=== PATIENT | male | born 1975 | race Two or more races ===

== ENCOUNTER 2016-12-22 00:01 | Inpatient (IN) | payer OTHER ==
[~2016-12-22] VITALS: Ht 175.3 cm; Wt 131.5 kg
[2016-12-22] MEDS ORDERED: IV NORMAL SALINE 1000ML BAG 1,000 ML IV SCH (00:30)
[2016-12-22 00:52] LABS: BASO % 0 % (0-3); EOS % 4 % (0-3); HEMATOCRIT 41.4 % (39.0-53.0); HEMOGLOBIN 13.5 g/dL (13.0-17.5); LYMPH # 1.6 x10^3/uL (1.0-4.8); LYMPH % 18 % (24-48); MEAN CORPUSCULAR HEMOGLOBIN 26 pg (25-35); MEAN CORPUSCULAR HGB CONC 33 g/dL (31-37); MEAN CORPUSCULAR VOLUME 80 fL (79-100); MONO % 8 % (0-9); NEUT % 70 % (31-73); PLATELET COUNT 210 x10^3/uL (140-400); RED BLOOD COUNT 5.21 x10^6/uL (4.30-5.70); RED CELL DISTRIBUTION WIDTH 13.4 % (11.5-14.5); WHITE BLOOD COUNT 9.1 x10^3/uL (4.0-11.0)
[2016-12-22 01:01] LABS: CREATININE 0.8 mg/dL (0.7-1.3); GFR 107.6; POTASSIUM 3.5 mmol/L (3.5-5.1)
[2016-12-22 01:05] LABS: ALBUMIN 3.5 g/dL (3.4-5.0); ALBUMIN/GLOBULIN RATIO 0.9 (1.0-1.7); TOTAL BILIRUBIN 0.7 mg/dL (0.2-1.0); TOTAL PROTEIN 7.6 g/dL (6.4-8.2)
--- NOTE | 2016-12-22 02:00 | PHYS DOC ---
Past Medical History Past Medical History: Hypertension Past Surgical History: Other Additional Past Surgical Histo: left knee Alcohol Use: None Drug Use: None Adult General Chief Complaint Chief Complaint: MULTIPLE COMPLAINTS HPI HPI Patient is a 41 year old gentleman who presents here today complaining of abdominal pain that started on Wednesday. Patient reports that the pain is intermittent. Patient reports there is no change with exertion. Patient reports that the abdominal discomfort is associated with some shortness of breath and diaphoresis. Patient denies any chest pressure nausea or radiating pain with the discomfort. Patient reports that approximately one week ago he swallowed a big piece of broccoli and that he had a very hard time swallowing it and since then he's been having some discomfort in his throat and abdomen. Patient thinks that this was the initiating factor of his abdominal pain. Patient denies any fevers shakes chills. Patient reports she's had some cough and dyspnea. Patient reports he has had no dysuria frequency or urgency. Patient denies any headache. Patient reports an occasional cough. Patient denies any rash. Patient reports that he had a fever on and Wednesday of last week however no fever since. Patient has a history of hypertension. Patient denies any history of diabetes coronary artery disease liver longer kidney problems. Patient has never been evaluated by a banana grader in the past. Patient has not had any gallbladder issues, appendix issues,. Patient does not smoke drink or do any drugs. Patient is not allergic to any medications. Patient's ER course was significant for normal EKG. EKG revealed normal sinus rhythm at a heart rate of [address]-T wave abnormalities without any evidence of acute ischemia. Patient however had an elevated troponin in the ER. Patient was again questioned her extensively regarding his cardiac symptomatology and other than some shortness of breath and occasional diaphoresis with abdominal discomfort patient had no other symptoms. Patient denies any history of family history of coronary artery disease at young age. Patient denies any cholesterol issues. Patient has no tobacco. Patient does not know cholesterol. Given the patient's elevated troponin, patient was given aspirin in the ER, Nitropaste to his anterior chest wall. Patient will be admitted for further cardiac evaluation and monitoring of his troponin level. Patient is currently clinically and hemodynamically stable. Patient is up fractioned series revealed no acute pathology. Patient's physical exam was unremarkable. Patient had some mild tenderness to palpation to his midepigastric area. Patient's lungs were clear. Patient's heart was regular rate and rhythm without any appreciable murmurs. A/P #1 abdominal pain etiology unclear. It's unclear whether this is not the patient's anginal equivalent. Patient had an elevated troponin for which she is currently being admitted for. Review of Systems Review of Systems Constitutional: Denies fever or chills [] Eyes: Denies change in visual acuity, redness, or eye pain [] HENT: Denies nasal congestion or sore throat [] Respiratory: Denies cough or shortness of breath [] All other review systems are negative except as documented in the history of present illness. Current Medications Current Medications Current Medications Medications (Trade) Dose Ordered Sig/Oscar Start Time Stop Time Status Last Admin Dose Admin Sodium Chloride (Iv Sodium Chloride 0.9% 1000ml Bag) 1,000 ml @ 1,000 mls/hr Q1H 12/22/16 00:30 12/22/16 01:29 DC 12/22/16 00:40 1,000 MLS/HR Allergies Allergies Allergies Coded Allergies Type Severity Reaction Last Updated Verified No Known Drug Allergies 12/22/16 No Physical Exam Physical Exam Constitutional: Well developed, well nourished, no acute distress, non-toxic appearance. [] HENT: Normocephalic, atraumatic, bilateral external ears normal, oropharynx moist, no oral exudates, nose normal. [] Eyes: PERRLA, EOMI, conjunctiva normal, no discharge. [] Neck: Normal range of motion, no tenderness, supple, no stridor. [] Cardiovascular:Heart rate regular rhythm, no murmur [] Lungs & Thorax: Bilateral breath sounds clear to auscultation [] Abdomen: Bowel sounds normal, soft, no tenderness, no masses, no pulsatile masses. [] Skin: Warm, dry, no erythema, no rash. [] Back: No tenderness, no CVA tenderness. [] Extremities: No tenderness, no cyanosis, no clubbing, ROM intact, no edema. [] Neurologic: Alert and oriented X 3, normal motor function, normal sensory function, no focal deficits noted. [] Psychologic: Affect normal, judgement normal, mood normal. [] Current Patient Data Vital Signs Vital Signs Date Time Temp Pulse Resp B/P Pulse Ox O2 Delivery O2 Flow Rate FiO2 12/22/16 00:43 78 20 158/101 94 Room Air 12/22/16 00:12 98.0 98.0 Lab Values Laboratory Tests Test 12/22/16 00:35 White Blood Count 9.1x10^3/uL (4.0-11.0) Red Blood Count 5.21x10^6/uL (4.30-5.70) Hemoglobin 13.5g/dL (13.0-17.5) Hematocrit 41.4% (39.0-53.0) Mean Corpuscular Volume 80fL (79-100) Mean Corpuscular Hemoglobin 26pg (25-35) Mean Corpuscular Hemoglobin Concent 33g/dL (31-37) Red Cell Distribution Width 13.4% (11.5-14.5) Platelet Count 210x10^3/uL (140-400) Neutrophils (%) (Auto) 70% (31-73) Lymphocytes (%) (Auto) 18% (24-48) L Monocytes (%) (Auto) 8% (0-9) Eosinophils (%) (Auto) 4% (0-3) H Basophils (%) (Auto) 0% (0-3) Neutrophils # (Auto) 6.4x10^3uL (1.8-7.7) Lymphocytes # (Auto) 1.6x10^3/uL (1.0-4.8) Monocytes # (Auto) 0.7x10^3/uL (0.0-1.1) Eosinophils # (Auto) 0.3x10^3/uL (0.0-0.7) Basophils # (Auto) 0.0x10^3/uL (0.0-0.2) Sodium Level 141mmol/L (136-145) Potassium Level 3.5mmol/L (3.5-5.1) Chloride Level 102mmol/L (98-107) Carbon Dioxide Level 27mmol/L (21-32) Anion Gap 12 (6-14) Blood Urea Nitrogen 8mg/dL (8-26) Creatinine 0.8mg/dL (0.7-1.3) Estimated GFR (Cockcroft-Gault) 107.6 BUN/Creatinine Ratio 10 (6-20) Glucose Level 110mg/dL (70-99) H Calcium Level 9.0mg/dL (8.5-10.1) Total Bilirubin 0.7mg/dL (0.2-1.0) Aspartate Amino Transferase (AST) 26U/L (15-37) Alanine Aminotransferase (ALT) 31U/L (16-63) Alkaline Phosphatase 66U/L (46-116) Troponin I Quantitative 0.062ng/mL (0.000-0.055) Total Protein 7.6g/dL (6.4-8.2) Albumin 3.5g/dL (3.4-5.0) Albumin/Globulin Ratio 0.9 (1.0-1.7) L Lipase 143U/L (73-393) Laboratory Tests 12/22/16 00:35 Laboratory Tests 12/22/16 00:35 EKG EKG [] Radiology/Procedures Radiology/Procedures [] Course & Med Decision Making Course & Med Decision Making Pertinent Labs and Imaging studies reviewed. (See chart for details) [] Dragon Disclaimer Dragon Disclaimer This electronic medical record was generated, in whole or in part, using a voice recognition dictation system. Departure Departure Impression: Primary Impression: Elevated troponin Additional Impression: Abdominal pain Disposition: ADMITTED INPATIENT Admitting Physician: Linsey Nolen Condition: GUARDED Referrals: UNKNOWN PCP NAME (PCP) Problem Qualifiers ADRIANNA WEAVER MD Dec 22, 2016 02:00
[2016-12-22] MEDS ORDERED: ASPIRIN CHEWABLE 81 MG TABLET. PO ONE (02:15)
[2016-12-22] MEDS ORDERED: NITROGLYCERIN SUBLINGUAL 0.4 MG BOTTLE OF 25. SL PRN (02:15)
[2016-12-22] MEDS ORDERED: ACETAMINOPHEN 325 MG TABLET. PO PRN (02:15)
[2016-12-22] MEDS ORDERED: NITROGLYCERIN OINT 1 GM PACKET. TP ONE (02:15)
[2016-12-22] MEDS ORDERED: MORPHINE SULFATE 2 MG/ML DISP.SYRIN. IV PRN (02:15)
[2016-12-22] MEDS ORDERED: ONDANSETRON PF 4 MG/2 ML VIAL. IV PRN (02:15)
--- NOTE | 2016-12-22 06:43 | EKG ---
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
--- NOTE | 2016-12-22 07:16 | RAD ---
Abdomen series with chest, 3 views, 12/22/2016: History: Abdominal pain Gas is present in large and small bowel in a nonspecific pattern. No free air is seen in the abdomen. There is no evidence of organomegaly or abnormal abdominal calcification. The heart size is normal. There appears be minimal linear scarring or atelectasis in the right upper lobe. The lungs are otherwise clear. IMPRESSION: No acute abdominal abnormality is detected.
[2016-12-22 07:59] VITALS: BP 150/95
--- NOTE | 2016-12-22 09:30 | PDOC2 ---
CARDIAC CONSULT DATE OF CONSULT Date of Consult DATE: 12/22/16 TIME: 09:22 REASON FOR CONSULT Reason for Consult: elevated troponin, abdominal pain REFERRING PHYSICIAN Referring Physician: Sabina SOURCE Source: Chart review, Patient HISTORY OF PRESENT ILLNESS HISTORY OF PRESENT ILLNESS This is a pleasant 41 yo male admitted for complains of abdominal pain. Apparently pt has been feeling constipated in the last week and this weekend decided to use bisacodyl po laxatives but it was ineffective so he started glycerin suppository. He denies any chest pain, SOA. Denies any diaphoresis or vomiting. He did have some dizziness but no other cardiac symptoms. Upon admission he was noted with very mild elevation of his troponin with uncontrolled HTN. He does have hx of HTN but has not been started with meds. He exercise 30 minutes twice a week and has not encounter any symptoms in relation to his exercises. PAST MEDICAL HISTORY Past Medical History HTN otherwise no other significant medical history PAST SURGICAL HISTORY Past Surgical History: Arthroscopy (left knee meniscus repair), Tonsillectomy FAMILY HISTORY Family History: Diabetes SOCIAL HISTORY Smoke: No ALCOHOL: none Drugs: None Lives: with Family CURRENT MEDICATIONS CURRENT MEDICATIONS Current Medications Medications (Trade) Dose Ordered Sig/Oscar Route PRN Reason Start Time Stop Time Status Last Admin Dose Admin Sodium Chloride (Iv Sodium Chloride 0.9% 1000ml Bag) 1,000 ml @ 1,000 mls/hr Q1H IV 12/22/16 00:30 12/22/16 01:29 DC 12/22/16 00:40 Aspirin (Children'S Aspirin) 324 mg 1X ONCE PO 12/22/16 02:15 12/22/16 02:16 DC 12/22/16 02:15 Nitroglycerin (Nitro-Bid Oint) 1 inch 1X ONCE TP 12/22/16 02:15 12/22/16 02:16 DC 12/22/16 04:54 ALLERGIES ALLERGIES: Coded Allergies: No Known Drug Allergies (Unverified , 12/22/16) ROS Review of System 14 point ROS evaluated with pertinent positives noted per HPI PHYSICAL EXAM General: Alert, Oriented X3, Cooperative, No acute distress HEENT: Atraumatic, Mucous membr. moist/pink Lungs: Clear to auscultation, Normal air movement Heart: Regular rate, Normal S1, Normal S2, No murmurs Abdomen: Soft, Other (obese, mild LLQ tenderness with palpation) Skin: No breakdown, No significant lesion Neuro: Normal speech, Sensation intact Psych/Mental Status: Mental status NL, Mood NL MUSCULOSKELETAL: No joint tenderness, No deformity, No swelling VITALS VITALS Vital Signs Date Time Temp Pulse Resp B/P Pulse Ox O2 Delivery O2 Flow Rate FiO2 12/22/16 07:59 98.1 78 17 150/95 93 Nasal Cannula 98.1 LABS Lab: Laboratory Tests Test 12/22/16 00:35 12/22/16 07:40 White Blood Count 9.1x10^3/uL (4.0-11.0) Red Blood Count 5.21x10^6/uL (4.30-5.70) Hemoglobin 13.5g/dL (13.0-17.5) Hematocrit 41.4% (39.0-53.0) Mean Corpuscular Volume 80fL (79-100) Mean Corpuscular Hemoglobin 26pg (25-35) Mean Corpuscular Hemoglobin Concent 33g/dL (31-37) Red Cell Distribution Width 13.4% (11.5-14.5) Platelet Count 210x10^3/uL (140-400) Neutrophils (%) (Auto) 70% (31-73) Lymphocytes (%) (Auto) 18% (24-48) Monocytes (%) (Auto) 8% (0-9) Eosinophils (%) (Auto) 4% (0-3) Basophils (%) (Auto) 0% (0-3) Neutrophils # (Auto) 6.4x10^3uL (1.8-7.7) Lymphocytes # (Auto) 1.6x10^3/uL (1.0-4.8) Monocytes # (Auto) 0.7x10^3/uL (0.0-1.1) Eosinophils # (Auto) 0.3x10^3/uL (0.0-0.7) Basophils # (Auto) 0.0x10^3/uL (0.0-0.2) Sodium Level 141mmol/L (136-145) Potassium Level 3.5mmol/L (3.5-5.1) Chloride Level 102mmol/L (98-107) Carbon Dioxide Level 27mmol/L (21-32) Anion Gap 12 (6-14) Blood Urea Nitrogen 8mg/dL (8-26) Creatinine 0.8mg/dL (0.7-1.3) Estimated GFR (Cockcroft-Gault) 107.6 BUN/Creatinine Ratio 10 (6-20) Glucose Level 110mg/dL (70-99) Calcium Level 9.0mg/dL (8.5-10.1) Total Bilirubin 0.7mg/dL (0.2-1.0) Aspartate Amino Transf (AST/SGOT) 26U/L (15-37) Alanine Aminotransferase (ALT/SGPT) 31U/L (16-63) Alkaline Phosphatase 66U/L (46-116) Troponin I Quantitative 0.062ng/mL (0.000-0.055) 0.042ng/mL (0.000-0.055) Total Protein 7.6g/dL (6.4-8.2) Albumin 3.5g/dL (3.4-5.0) Albumin/Globulin Ratio 0.9 (1.0-1.7) Lipase 143U/L (73-393) ASSESSMENT/PLAN ASSESSMENT/PLAN 1. Abdominal pain with constipation: defer to PCP 2. Elevated troponin: trivial peaked at 0.062 which is likely from uncontrolled HTN. No cardiac symptoms. EKG NSR. 3. Accelerated HTN: known unmedicated HTN. 4. Morbid obesity: BMI 42 Recommendations 1. Await TTE, if no significant changes then no further workup and anticipate DC this afternoon 2. Start lisinopril/HCTZ 3. Discussed lifestyle modifications, weight loss, DASH diet, dietitian to see pt. 4. Increase exercise regimen 5. Daily home BP monitoring and establish outpt PCP. 6. Lipids, TSH Problems: LIBRA CAGLE APRN Dec 22, 2016 09:30
--- NOTE | 2016-12-22 11:18 | ACF ---
Admit Criteria Forms Admit Criteria Forms Admit Criteria Forms CARDIOLOGY GRG Clinical Indications for Admission to Inpatient Care ( Place 'X' for any and all applicable criteria): Hospital admission is needed for appropriate care of the patient because of ANY ONE of the following (1): [ ] I. Hemodynamic instability as indicated by ALL of the following (1)(2)(3) (4)(5) [ ]a) Vital signs or other findings not as expected for chronic patient condition or baseline [ ]b) Instability indicated by ANY ONE of the following: [ ]i) Hypotension [ ]ii) Symptomatic Tachycardia unresponsive to treatment ( e.g., analgesia, fluids, sedation as indicated) [ ]iii) Inadequate perfusion indicated by ANY ONE of the following: [ ] 1) Lactic acidosis (> 2 mmol/L) [ ] 2) New abnormal capillary refill (> 3 seconds) [ ] 3) Reduced urine output [ ] 4) New altered mental status [ ]iv) Orthostatic vital sign changes unresponsive to treatment (e.g., fluids) [ ]v) IV inotropic or vasopressor medication required to maintain adequate blood pressure or perfusion [ ] II. Severe heart failure as indicated by ANY ONE of the following(17)(18) [ ]a) Respiratory distress [ ]b) Hypotension [ ]c) Anasarca (refractory to outpatient therapy) [ ]d) Cardiac arrhythmias of immediate concern [ ]e) Myocardial ischemia [ ] III. Cardiac arrhythmias or findings of immediate concern indicated by ANY ONE of the following (19)(20): [ ] a) Heart rhythms that are inherently dangerous or unstable indicated by ANY ONE of the following (21)(22)(23): [ ] i) Resuscitated ventricular fibrillation or cardiac arrest [ ] ii) Ventricular escape rhythm [ ] iii) Sustained ventricular tachycardia (30 seconds or more of ventricular rhythm at greater than 100 beats per minute) [ ] iv) Nonsustained ventricular tachycardia and ANY ONE of the following: [ ] 1) Suspected cardiac ischemia as cause or consequence of ventricular tachycardia [ ] 2) In setting of acute myocarditis [ ] b) Unstable cardiac conduction defects indicated by ANY ONE of the following(23)(24)(25) [ ] i) Type II second-degree atrioventricular block [ ]ii) Third-degree atrioventricular block [ ]iii) New-onset left bundle branch block with suspected myocardial ischemia [ ]c) Any heart rhythm and ANY ONE of the following (21)(22)(26)(27) (28) [ ] i) Continuous long-term ECG monitoring needed (e.g., initiation of drug requiring monitoring for more than 24 hours) [ ] ii) Patient has automatic implanted cardioverter defibrillator that is repeatedly firing, malfunctioning, or in need of immediate adjustment of settings beyond the scope of ambulatory or observation care [ ]d) Heart rhythms of concern due to ANY ONE of the following: [ ] i) Hypotension [ ] ii) Respiratory distress [ ] iii) Association with other significant symptoms (e.g., bradycardia with syncope or ongoing dizziness, supraventricular tachycardia with chest pain (14)(15)(17) [ ] IV. Monitoring for cardiac contusion beyond the scope of observation care needed [A](30)(31)(32) [ ] V. Surgical or device complication (e.g., valve replacement complication , pacemaker dysfunction) (35)(41)(44)(45)(46) [ ] . Inpatient palliative care needed. [B](49) Also use Inpatient Palliative Care Criteria [ ] VII. Nonbacterial thrombotic (marantic) endocarditis (36)(43)(47)(48) [X] VIII. Cardiology condition, symptom, or finding for which emergency and observation care has failed or are not considered appropriate. [ ] IX. Acute valvular disease requiring inpatient as indicated by ANY ONE of the following (41) [ ]a) Acute valvular regurgitation (42) [ ]b) Noninfectious valvulitis (43) [ ]c) Obstructive valve thrombosis [ ]d) Paravalvular leak [ ]e) Other significant valvular disorder remaining after emergency or observation level of care (as appropriate) [ ]X. Pericardial disease requiring inpatient treatment as indicated by ANY ONE of the following (33)(34)(35)(36)(37) [ ]a) Suspected tamponade (38)(39)(40) [ ]b) Hemopericardium [ ]c) Other significant pericardial disorder remaining after emergency or observation level of care (as appropriate) [ ] XI. Cardiac ischemia beyond scope of emergency and observation care. [ ] XII. Hypertension requiring inpatient treatment as indicated by ANY ONE of the following (6)(7)(8) [ ]a) SBP greater than 220 mm Hg or DBP greater than 120 mmHg despite treatment [ ]b) SBP greater than 140 mm Hg or DBP greater than 100 mm Hg with evidence of acute end organ damage as indicated by ANY ONE of the following [ ] i) Encephalopathy [ ] ii) Acute renal failure as indicated by new onset of ANY ONE of the following (9)(10)(11)(12)(13) [ ]1) 3-fold rise in serum creatinine from baseline [ ]2) Serum creatinine greater than 4 mg/dL ( 354 micromoles/L) with acute rise greater than 0.5 mg/dL (44.2 micromoles/L) [ ]3) Reduction of more than 75% in estimated glomerular filtration rate from baseline [ ]4) Estimated glomerular filtration rate less than 35 mL/min/1.73m2 (0.59 mL/sec/1.73m2) in child up to 18 years of age [ ]5) Cessation of urine output indicated by ALL of the following [ ]A. Adequate volume status [ ]B. Inadequate urine output as indicated by ANY ONE of the following [ ]a. Urine output less than 0.3 mL/kg/hr for 24 hours [ ]b. Anuria (urine output less than 0.1 mL/kg/hr) for 12 hours [ ] iii) Aortic dissection [ ] iv) Myocardial Ischemia [ ] v) Left ventricular heart failure [ ]vi) Retinal Hemorrhage [ ]vii) Other significant finding [ ]c) Hypertension in child requiring inpatient treatment as indicated by ALL of the following(14)(15)(16) [ ] i) Outpatient treatment not effective, not available, or not appropriate [ ]ii) SBP or DBP greater than 95th percentile for age [ ]iii) Evidence of acute end organ damage as indicated by ANY ONE of the following [ ]1) Altered mental status [ ]2) Acute renal failure as indicated by new onset of ANY ONE of the following(9)(10)(11)(12)(13) [ ]A. 3-fold rise in serum creatinine from baseline [ ]B. Serum creatinine greater than 4 mg/dL (354 micromoles/L) with acute rise greater than 0.5 mg/dL (44.2 micromoles/L) [ ]C. Reduction of more than 75% in estimated glomerular filtration rate from baseline [ ]D. Estimated glomerular filtration rate less than 35 mL/min/1.73m2 (0.59 mL/sec/1.73m2) in child up to 18 years of age [ ]E. Cessation of urine output indicated by ALL of the following [ ]a. Adequate volume status [ ]b. Inadequate urine output as indicated by ANY ONE of the following [ ]i) Urine output less than 0.3 mL/kg/hr for 24 hours [ ]ii) Anuria ( urine output less than 0.1 mL/kg/hr) for 12 hours [ ]3) Severe headache [ ]4) Visual disturbance [ ]5) Retinal hemorrhage [ ]6) Other significant finding [ ]XIII. Complications of transplanted heart indicated by ANY ONE of the following(61): [ ]a) Acute graft rejection requiring inpatient management (eg, intravenous immunosuppression)(62)(63) [ ]b) Acute graft heart failure indicated by ANY ONE of the following(64): [ ]i) Hemodynamic instability [ ]ii) Cardiac arrhythmias of immediate concern [ ]iii) Pulmonary edema that is very severe (eg, mechanical ventilation needed, imminent or likely, need for 100% oxygen to keep oxygen saturation above 90%) [ ]iv) Pulmonary edema that is persistent as indicated by ALL of the following: [ ]1) New need for oxygen therapy to keep oxygen saturation above 90% (or increased FiO2 need from baseline) [ ]2) Has not improved sufficiently with emergency department or observation care IV diuretics or other heart failure treatments[E] [ ]v) Altered mental status that is severe or persistent [ ]vi) Increased creatinine (new on laboratory test) with reduction of more than 50% in estimated glomerular filtration rate from baseline [ ]vii) Progressively (ongoing) rising creatinine (known from past laboratory test) with reduction of more than 25% in estimated glomerular filtration rate from baseline [ ]viii) Acute renal failure [ ]ix) Acute peripheral ischemia (eg, examination shows pulseless, cool, mottled, or cyanotic extremity) [ ]x) Pulmonary artery catheter monitoring needed [ ]xi) Other sign or symptom of heart failure requiring inpatient treatment (ie, too severe or not responsive to outpatient and observation care treatment) [ ]c) Infection requiring inpatient management (eg, Hemodynamic instability, need for intravenous antimicrobial treatment)(66)(67)(68)(69)(70) [ ]d) Cardiac allograft vasculopathy requiring inpatient management ( eg evidence of cardiac ischemia)(71) [ ]e) Other complication of transplanted heart (eg, stroke, severe pulmonary hypertension, severe valvular dysfunction) requiring inpatient management(72) The original [facility] content created by [facility] has been revised. The portions of the content which have been revised are identified through the use of italic text or in bold, and [facility] has neither reviewed nor approved the modified material. All other unmodified content is copyright [facility]. Please see references footnoted in the original [facility] edition 2016 NICHOLE GARRISON Dec 22, 2016 11:18
[2016-12-22 11:30] VITALS: BP 150/101
[2016-12-22] MEDS ORDERED: LISINOPRIL 5 MG TABLET. PO SCH (11:30)
--- NOTE | 2016-12-22 11:30 | CARD ---
APPROVED REPORT EXAM: Two-dimensional and M-mode echocardiogram with Doppler and color Doppler. Other Information Quality : Good INDICATION Hypertension/HCVD Elevated Troponin 2D DIMENSIONS RVDd2.8 (2.9-3.5cm)Left Atrium(2D)3.5 (1.6-4.0cm) IVSd1.2 (0.7-1.1cm)Aortic Root(2D)2.9 (2.0-3.7cm) LVDd4.4 (3.9-5.9cm)LVOT Diameter2.6 (1.8-2.4cm) PWd1.1 (0.7-1.1cm)LVDs3.1 (2.5-4.0cm) FS (%) 27.5 %SV25.4 ml LVEF(%)55.0 (>50%) Aortic Valve AoV Peak Jak.163.0cm/sAoV VTI28.4cm AO Peak GR.10.6mmHgLVOT Peak Jak.124.6cm/s LVOT VTI 23.02cmAO Mean GR.7mmHg FLORINA (VMAX)4.78zz3ZLD (VTI)4.27cm2 Mitral Valve MV E Zybmqsen51.4cm/sMV DECEL GSHI095ut MV A Kktyzjol80.3cm/sMV FYV66wf E/A Ratio0.8MVA (PHT)2.55cm2 TDI E/Lateral E'10.2E/Medial E'2.1 Pulmonary Vein S1 Uhjdcinz69.1cm/sD2 Wyifwpve55.7cm/s LEFT VENTRICLE The left ventricle is normal size. There is mild concentric left ventricular hypertrophy. The left ve ntricular systolic function is normal and the ejection fraction is within normal range. The Ejection Fraction is 55-60%. There is normal LV segmental wall motion. Transmitral Doppler flow pattern is Gra de I-abnormal relaxation pattern. RIGHT VENTRICLE The right ventricle is normal size. The right ventricular systolic function is normal. ATRIA The left atrium size is normal. The right atrium size is normal. The interatrial septum is intact wit h no evidence for an atrial septal defect or patent foramen ovale as noted on 2-D or Doppler imaging. AORTIC VALVE The aortic valve is normal in structure and function. Doppler and Color Flow revealed no significant aortic regurgitation. There is no significant aortic valvular stenosis. MITRAL VALVE The mitral valve is normal in structure and function. There is no evidence of mitral valve prolapse. There is no mitral valve stenosis. Doppler and Color-flow revealed trace mitral regurgitation. TRICUSPID VALVE The tricuspid valve is normal in structure and function. Doppler and Color Flow revealed no tricuspid valve regurgitation noted. There is no tricuspid valve stenosis. PULMONIC VALVE The pulmonary valve is normal in structure and function. Doppler and Color Flow revealed no pulmonic valvular regurgitation. There is no pulmonic valvular stenosis. GREAT VESSELS The aortic root is normal in size. The ascending aorta is not well seen. The IVC is normal in size an d collapses >50% with inspiration. PERICARDIAL EFFUSION There is no evidence of significant pericardial effusion. Critical Notification Critical Value: No <Conclusion> The left ventricle is normal size. The left ventricular systolic function is normal and the ejection fraction is within normal range. The Ejection Fraction is 55-60%. There is mild concentric left ventricular hypertrophy. There is no significant aortic valvular stenosis. Doppler and Color Flow revealed no significant aortic regurgitation. Doppler and Color-flow revealed trace mitral regurgitation. Doppler and Color Flow revealed no tricuspid valve regurgitation noted. There is no evidence of significant pericardial effusion.
[2016-12-22] MEDS ORDERED: MAGNESIUM HYDROXIDE 2,400 MG/30 ML ORAL.SUSP. PO PRN (12:30)
[2016-12-22] MEDS ORDERED: LISI10TA2 PO (12:34)
[2016-12-22] MEDS ORDERED: HYDROCHLOROTHIAZIDE 12.5 MG CAPSULE. PO SCH (13:00)
[2016-12-22 13:15] VITALS: BP 150/101
[2016-12-22 13:41] LABS: BARBITURATES NEG (NEG); BENZODIAZEPINES NEG (NEG); CANNABINOIDS NEG (NEG); COCAINE NEG (NEG); ETHANOL, URINE NEG (NEG); METHADONE NEG (NEG); OPIATES NEG (NEG); PHENCYCLIDINE NEG (NEG)
[2016-12-22] MEDS ORDERED: LISINOPRIL 5 MG TABLET. PO ONE (14:30)
--- NOTE | 2016-12-22 14:41 | SSS ---
ADMIT DATE: 12/22/2016 CHIEF COMPLAINT: Constipation, abdominal pain. HISTORY OF PRESENT ILLNESS: The patient is a 41-year-old gentleman who presented to the Emergency Room with complaints of constipation for 3 days with associated abdominal pain. He had tried various medications at home including suppositories without any success. On evaluation in the Emergency Room, he was found with mildly elevated troponin and was therefore admitted for further workup. PAST MEDICAL HISTORY: Hypertension. PAST SURGICAL HISTORY: Tonsillectomy, arthroscopy for left knee meniscus repair. FAMILY HISTORY: Diabetes. SOCIAL HISTORY: Lives with his family. No toxic habits. ALLERGIES: No known drug allergies. MEDICATIONS: At home, he is only on unknown blood pressure medication. REVIEW OF SYSTEMS: The patient relates that his abdominal pain is only mildly improved. He has not moved his bowels yet. He denies any chest pain, shortness of breath, diaphoresis, nausea or vomiting. Rest of organ system review is negative. PHYSICAL EXAMINATION: VITAL SIGNS: From today show a blood pressure of 150/95, heart rate of 78, respiratory rate of 17. He is afebrile. GENERAL: This is an obese 41-year-old gentleman, alert and oriented, in no acute distress. HEENT: Shows no scleral icterus. NECK: Supple. LUNGS: Clear to auscultation bilaterally. CARDIOVASCULAR: Heart is regular rate and rhythm. ABDOMEN: Has positive bowel sounds, soft, nontender. EXTREMITIES: Show no edema. LABORATORY DATA: CBC with a WBC of 9.1, hemoglobin 13.5, platelets of 210. Of note, MCV is 80. Chemistries with BUN and creatinine of 8 and 0.8, normal electrolytes. LFTs within normal. Initial troponin at 0.062, repeat is 0.042. Lipid profile with cholesterol at 157, LDL at 110, triglycerides at 103. IMAGING STUDIES: Acute abdomen series showed no acute abdominal abnormality. HOSPITAL COURSE: The patient was admitted to the CICU for further monitoring. He was ruled out for ACS with serial enzymes. Cardiology was consulted. Concern was essentially his hypertension, which was not optimally controlled. An echocardiogram revealed no wall motion abnormalities. Ejection fraction was 65%. He was started on lisinopril 10 mg daily. He was strongly advised to follow up with his PCP KAYLA for monitoring of his blood pressure and potential adjustment of his medications. For his constipation, he received additional laxatives here in hospital. His abdominal pain was manageable and he was discharged to home on 12/22/2016. DISCHARGE DATE: 12/22/2016 DISCHARGE DISPOSITION: To home. DISCHARGE CONDITION: Improved. DISCHARGE DIAGNOSES: Troponin leak, constipation. DISCHARGE MEDICATIONS: Please refer to MAR. DISCHARGE INSTRUCTIONS: The patient will follow up with PCP in 1 week. ZACH LIMA MD DR: SUMI/nts JOB#: [id number] / [id number] [facility], [facility]
[2016-12-23] MEDS ORDERED: LISINOPRIL 10 MG TABLET PO SCH (09:00)
== END 2016-12-22 14:35 | disposition home or self-care (01) | DRG 392 ==
LOC: ER 00:01 → MERGE 01:58 → 2 SOUTH 01:58
PROVIDERS: ADMIT Internal Medicine; ATTEND Internal Medicine
DX: K59.00 Constipation, unspecified (principal); Z68.41 Body mass index [BMI] 40.0-44.9, adult; E66.01 Morbid (severe) obesity due to excess calories; I10 Essential (primary) hypertension; Z83.3 Family history of diabetes mellitus
CPT/HCPCS: 36415; 74022; 80053; 80061; 83690; 84443; 84484; 85027; 93005; 93306; 96360; 96361; G0481; J7030; 99285-25

== ENCOUNTER 2017-11-12 10:27 | Emergency (ER) | payer BC, OTHER ==
[2017-11-12] MEDS: cloNIDine HCL 0.1 MG TABLET PO (11:47)
[2017-11-12 11:56] LABS: ADD MAN DIFF? NO
[2017-11-12 11:59] LABS: AGAP ISTAT 14 mmol/L (6-14); BUN ISTAT 9 mg/dL (8-26); CHLORIDE ISTAT 102 mmol/L (98-110); CREATININE ISTAT 0.9 mg/dL (0.5-1.4); GLUCOSE ISTAT 101 mg/dL (70-99); HEMATOCRIT ISTAT 45 % (37-52); HEMOGLOBIN ISTAT 15.3 g/dL (14-18); ION CA ISTAT 1.24 mmol/L (1.13-1.32); SODIUM ISTAT 141 mmol/L (135-145); TOT CO2 ISTAT 30 mmol/L (23-32)
[2017-11-12 12:00] LABS: BASO % 1 % (0-3); EOS # 0.2 x10^3/uL (0.0-0.7); EOS % 3 % (0-3); HEMATOCRIT 44.4 % (39.0-53.0); HEMOGLOBIN 14.8 g/dL (13.0-17.5); LYMPH # 1.6 x10^3/uL (1.0-4.8); LYMPH % 22 % (24-48); MEAN CORPUSCULAR HEMOGLOBIN 27 pg (25-35); MEAN CORPUSCULAR HGB CONC 33 g/dL (31-37); MEAN CORPUSCULAR VOLUME 81 fL (79-100); MONO # 0.4 x10^3/uL (0.0-1.1); MONO % 6 % (0-9); NEUT # 4.8 x10^3uL (1.8-7.7); NEUT % 68 % (31-73); PLATELET COUNT 229 x10^3/uL (140-400); RED BLOOD COUNT 5.52 x10^6/uL (4.30-5.70); RED CELL DISTRIBUTION WIDTH 13.6 % (11.5-14.5); WHITE BLOOD COUNT 7.1 x10^3/uL (4.0-11.0)
== END 2017-11-12 13:00 | disposition home or self-care (01) ==
LOC: ER 10:27
DX: I10 Essential (primary) hypertension (principal)
CPT/HCPCS: 36415; 70450; 80047; 84484; 85025; 93005; 99285-25